=== PATIENT | female | born 1955 | race Caucasian/White ===

== ENCOUNTER 2016-12-25 09:28 | Outpatient (CLI) | payer OTHER | END 2016-12-25 09:29 | disposition home or self-care (01) | DX: L68.0 Hirsutism (principal); E78.5 Hyperlipidemia, unspecified; E09.9 Drug or chemical induced diabetes mellitus without complications ==

== ENCOUNTER 2021-07-23 09:35 | Outpatient (CLI) | payer MEDICARE, OTHER ==
--- NOTE | 2021-07-24 13:28 | Mammography Report ---
BILATERAL DIGITAL SCREENING MAMMOGRAM 3D/2D: 07/23/2021 CLINICAL: Baseline exam. Routine screening. No prior exams were available for comparison. The tissue of both breasts is heterogeneously dense. T his may lower the sensitivity of mammography. There is an oval focal asymmetry in the right breast at 4 o'clock posterior depth. No other significant masses, calcifications, or other findings are seen in either breast. IMPRESSION: INCOMPLETE: NEEDS ADDITIONAL IMAGING EVALUATION The oval focal asymmetry in the right breast is indeterminate. Additional views with possible ultras ound are recommended. This exam was interpreted at Station ID: [id number]. NOTE: For mammograms, a report in lay terms will be sent to the patient. Approximately 15% of breast malignancies will not be visualized mammographically. In the management of a palpable breast mass, a negative mammogram must not discourage biopsy of a clinically suspicious lesion. Electronically Signed By: Amos [email or web address]/[email or web address]:07/23/2021 12:43:06 ACR BI-RADS Category 0: Incomplete 3340F PARENCHYMAL PATTERN: (D) - The breast(s) demonstrate(s) heterogeneously dense fibroglandular rohan cuellar. BI-RADS CATEGORY: (0) - 0 Mammo and [place] [id number] Immediate follow-up LATERALITY: (R)
== END 2021-07-23 09:36 | disposition home or self-care (01) ==
LOC: DI 09:35
PROVIDERS: ATTEND Registered Nurse
DX: Z12.31 Encounter for screening mammogram for malignant neoplasm of breast (principal); R92.8 Other abnormal and inconclusive findings on diagnostic imaging of breast

== ENCOUNTER 2021-07-23 09:37 | Outpatient (CLI) | payer MEDICARE, OTHER ==
--- NOTE | 2021-07-23 11:31 | DEXA Report ---
PROCEDURE: Dexa Spine and/or Hip INDICATIONS: POSTMENOPAUSAL TECHNIQUE: Dual energy x-ray absorptiometry (DXA) was performed on a [employer] System. Regions measur ed are the AP Spine, femoral neck, and if needed forearm. COMPARISON: None. FINDINGS: Lumbar Spine: Bone Mineral Density 1.130 g/cm/cm,T score -0.4, normal bone density Left Hip: Bone Mineral Density 0.997 g/cm/cm,T score -0.1, normal bone density Left Femoral Neck: Bone Mineral Density 0.934 g/cm/cm, T score -0.7, normal bone density (T score greater or equal to -1.0: NORMAL) (T score from -1.1 to -2.4: OSTEOPENIA) (T score less than or equal to -2.5 to: OSTEOPOROSIS) Impression: Normal bone mineral density. Patients with diagnosis of osteoporosis or osteopenia should have regular bone mineral density assess ment. For those eligible for Medicare, routine testing is allowed once every 2 years. Testing frequ ency can be increased for patients who have rapidly progressing disease or for those who are receivin g medical therapy to restore bone mass. Reviewed by: Ankit Powers MD on 07/23/2021 11:30 AM PST Approved by: Ankit Powers MD on 07/23/2021 11:30 AM PST Station ID: [id number]
== END 2021-07-23 09:38 | disposition home or self-care (01) ==
LOC: DI 09:37
PROVIDERS: ATTEND Registered Nurse
DX: Z78.0 Asymptomatic menopausal state (principal)

== ENCOUNTER 2022-05-19 23:59 | Outpatient (CLI) | payer MEDICARE, OTHER | END 2022-05-20 | disposition home or self-care (01) | LOC: LAB 23:59 | PROVIDERS: ATTEND Registered Nurse | DX: Z53.9 Procedure and treatment not carried out, unspecified reason (principal) ==

== ENCOUNTER 2022-05-20 02:03 | Emergency (ER) | payer MEDICARE, OTHER ==
--- NOTE | 2022-05-20 02:41 | ED Physician Documentation ---
History of Present Illness - Stated complaint Stated Complaint: SOA - Chief complaint Chief Complaint: Resp - History obtained from History obtained from: Patient, Family () - Additonal information Additional information: 66-year-old woman with history of hypothyroidism, otherwise healthy, presents after waking suddenly at 1 AM with a sensation that she could not breathe. She began to cough and then felt her throat tightening and she and her presented to the ED. Per 's report patient has been suffering from chest congestion over the past day or so. +sick contacts (friend with URI). denies fever, hemoptysis, leg swelling, CP. 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 - Past Surgical History Past Surgical History: Yes General: Other - Present Medications Home Medications: Ambulatory Orders Medication Instructions Recorded Confirmed Levothyroxine Sodium 150 mcg PO DAILY 05/20/22 05/20/22 [Levothyroxine] guaiFENesin [Chest Congestion 400 mg PO BID PRN 5 Days #10 tablet 05/20/22 Relief] - Allergies Allergies/Adverse Reactions: Allergies Allergy/AdvReac Type Severity Reaction Status Date / Time acetaminophen [From Percocet] AdvReac Unknown Verified 05/20/22 02:16 codeine AdvReac Unknown Verified 05/20/22 02:16 oxycodone [From Percocet] AdvReac Unknown Verified 05/20/22 02:16 - Social History Does the pt smoke?: No Smoking Status: Never smoker Does the pt drink ETOH?: No Does the pt have substance abuse?: No - Immunizations Immunizations are current?: Yes - POLST Patient has POLST: No PD ED PE NORMAL - Vitals Vital signs reviewed: Yes - General General: Alert and oriented X 3, Well developed/nourished, Other (panicked appearing on initial evaluation. reassured after exam) - HEENT HEENT: Atraumatic, PERRL, EOMI, Moist mucous membranes, Pharynx benign - Neck Neck: Supple, no meningeal sign, Other (normal upper airway breath sounds) - Cardiac Cardiac: RRR - Respiratory Respiratory: No respiratory distress, Clear bilaterally - Abdomen Abdomen: Non tender, Non distended - Derm Derm: Normal color, Warm and dry - Extremities Extremities: No deformity - Neuro Neuro: Alert and oriented X 3, No motor deficit, No sensory deficit - Psych Psych: Other (anxious affect) Results - Vitals Vitals: Vital Signs - 24 hr 05/20/22 05/20/22 05/20/22 02:12 02:28 02:46 Temperature 37.0 C Heart Rate 97 85 78 Respiratory 26 H 22 13 Rate Blood Pressure 147/115 H 128/58 L 123/75 O2 Saturation 99 100 95 Oxygen O2 Source Room air PD MEDICAL DECISION MAKING - ED course ED course: Patient was panicked appearing upon initial arrival with apparently stridulous breathing but after an examination revealed normal upper airway sounds she appeared reassured and submitted to saline nebulizer treatment. Patient now breathing comfortably with no accessory muscle use. Symptoms completely resolved. Education given about management of common cold symptoms. Return precautions given. Plan to f/u with PCP. Departure - Departure Disposition: 01 Home, Self Care Clinical Impression: URI (upper respiratory infection) Condition: Good Instructions: ED Viral Syndrome Prescriptions: guaiFENesin [Chest Congestion Relief] 400 mg PO BID PRN 5 Days #10 tablet PRN Reason: Cough Comments: You were seen in the emergency department for evaluation of cough and shortness of breath. Your physical exam revealed that you likely have a viral illness. You should get a coolmist humidifier and keep it by the bedside at nighttime to help in the healing process. I am prescribing guaifenesin, an expectorant, which will loosen mucus in the chest and enable you to cough it up. Take products containing dextromethorphan as needed before bed as a nighttime cough suppressant. Drink lots of water and get rest. Try to take short, gentle walks daily as you heal. Please follow-up with your primary provider and return to the emergency department if you have any new or worsening symptoms or other concerns.
[2022-05-20 02:46] VITALS: BP 123/75
== END 2022-05-20 03:51 | disposition home or self-care (01) ==
LOC: ED 02:03
DX: J06.9 Acute upper respiratory infection, unspecified (principal)
CPT/HCPCS: 36415; 99282; 99284

== ENCOUNTER 2023-11-15 10:14 | Outpatient (CLI) | payer MEDICARE, OTHER ==
--- NOTE | 2023-11-16 10:09 | Mammography Report ---
BILATERAL DIGITAL SCREENING MAMMOGRAM 3D/2D: 11/15/2023 CLINICAL: Routine screening. Comparison is made to exams dated: 07/23/2021 mammogram - [facility] and 09/30/2012 m ammogram - [facility]. Both breasts are heterogeneously dense, which may obscure small masses (category c / 51-75% glandular tissue). There are benign post operative findings in the right breast. No significant masses, calcifications, or other findings are seen in either breast. There has been no significant interval change. IMPRESSION: BENIGN There is no mammographic evidence of malignancy. A 1 year screening mammogram is recommended. Based on the Tyrer Cuzick model (a risk assessment model) the patient's lifetime risk is 7.2% and her 10 year risk is 3.8%. According to the ACR, ACS, and NCCN guidelines, an annual breast MRI exam mandy g with mammogram is recommended if the patient's lifetime risk is 20% or greater. This exam was interpreted at Station ID: [id number]. NOTE: For mammograms, a report in lay terms will be sent to the patient. Approximately 15% of breast malignancies will not be visualized mammographically. In the management of a palpable breast mass, a negative mammogram must not discourage biopsy of a clinically suspicious lesion. Electronically Signed By: Rudy [email or web address]/[email or web address]:11/15/2023 11:22:07 letter sent: No_Letter ACR BI-RADS Category 2: Benign Finding(s) 3342F PARENCHYMAL PATTERN: (D) - The breast(s) demonstrate(s) heterogeneously dense fibroglandular rohan cuellar. BI-RADS CATEGORY: (2) - 2 RECOMMENDATION: (ANNUAL) - Recommend routine annual screening mammography. [id number] 1 year screening LATERALITY: (B)
== END 2023-11-15 10:15 | disposition home or self-care (01) ==
LOC: DI 10:14
PROVIDERS: ATTEND Registered Nurse
DX: Z12.31 Encounter for screening mammogram for malignant neoplasm of breast (principal); R92.333 Mammographic heterogeneous density, bilateral breasts